=== PATIENT | female | born 1950 | race Caucasian/White ===

== ENCOUNTER → 2016-12-16 | Outpatient (CLI) | payer MEDICARE ==
[~2016-12-16] MED LIST: AMIT100T35 PO; AMLO1CAP18 PO; ASPI-715 PO; BENA20TA45 PO; CITA20TA17 PO; FURO-33 PO; HYDR-696 PO; OMEP-29 PO
== END ==
LOC: WC.BC 08:31
DX: Z12.31 Encounter for screening mammogram for malignant neoplasm of breast (principal); N64.59 Other signs and symptoms in breast; Z80.3 Family history of malignant neoplasm of breast
CPT/HCPCS: 77063; G0202

== ENCOUNTER 2017-10-28 06:14 | Inpatient (IN) ==
--- NOTE | 2017-10-25 17:09 | History and Physical ---
CHIEF COMPLAINT Right knee pain. MIKY Bui is a 67-year-old lady who has had right knee pain for several years. The severity of her pain is becoming severe. It is aching and sharp in quality and is constant. It does not radiate. It is aggravated with weightbearing, walking and prolonged sitting. She has tried physical therapy, corticosteroid injections, rest and other activities without improvement. She is having more weakness with walking, pain at night awakening her from sleep and a locking sensation in the knee. X-rays show advanced arthritis with loss of the joint space. Due to the severity of her symptoms she is being admitted for an elective total knee replacement. ALLERGIES No known drug allergies. MEDICATIONS, ILLNESSES, PAST SURGICAL HISTORY, FAMILY HISTORY, SOCIAL HISTORY Reviewed and updated in the EMR. A copy of reports from Dr. Lambert and Dr. Ordoñez are included on the chart for review. REVIEW OF SYSTEMS There was no fever, chills, skin infections, rashes, numbness of extremity, or seizures. PHYSICAL EXAMINATION GENERAL: Mrs. Wagner is a 67-year-old female. She is cooperative, in no acute distress, well-developed and well-nourished. RIGHT KNEE: The knee shows tenderness to the medial joint line. She has a varus deformity that is fixed. She has a 1+ effusion to the knee. Skin is in good repair. She is intact neurovascularly to the lower extremity. IMPRESSION Primary degenerative arthritis of the right knee. PLAN Due to the severity of symptoms, x-ray findings, and failure of nonsurgical treatment, Dr. Ordoñez has recommended a right total knee arthroplasty. Dr. Ordoñez reviewed the risks, benefits, alternative treatments and possible complications of surgery. Questions have been answered to the patient's satisfaction. Will plan to proceed with a right total knee on 10/28/2017. MADAY
[~2017-10-28 06:14] MED LIST changes: +ACETAMINOPHEN 500 MG TABLET PO ONE; -AMIT100T35 PO; -AMLO1CAP18 PO; -ASPI-715 PO; -BENA20TA45 PO; -CITA20TA17 PO; +FAMOTIDINE PB 20 MG/50 ML BAG IV ONE; -FURO-33 PO; -HYDR-696 PO; +LIDOCAINE 1% (10mg/ml) 2mL INJ PF SDV ID ONE; +METOCLOPRAMIDE 10mg/2ml INJECTION IVP ONE; -OMEP-29 PO; +ONDANSETRON 4 MG/2 ML INJECTION IVP ONE; +TRANEXAMIC ACID 1,000 MG in NS 100 ML IV ONE
[2017-10-28 06:33] VITALS: BMI 42.7
[2017-10-28] MEDS ORDERED: TRANEXAMIC ACID 1,000 MG in NS 100 ML IV ONE (07:00)
[2017-10-28] MEDS: NOZIN NASAL SWAB NAS SCH ×5 (07:39→21:34)
[2017-10-28] MEDS ORDERED: EPINEPHrine PF 0.25 MG, BUPIVACAINE 0.25% PF 30 ML, MORPHINE SULFATE 15 MG, KETOROLAC I... OPSITE ONE (08:00)
[2017-10-28] MEDS ORDERED: CEFAZOLIN 1 G INJECTION IVP ONE (09:00)
[2017-10-28] MEDS ORDERED: VANCOMYCIN 1,000 MG INJECTION ONE ×2 (09:01→09:02)
--- NOTE | 2017-10-28 09:24 | Anesthesia Preoperative Report ---
Anesthesia Preoperative Record - Date and Time Date: 10/28/17 Preoperative Diagnosis: Rt TKA M17.11 NPO Since Date: 10/27/17 NPO Since Time: 23:00 Allergies/Adverse Reactions: Allergies Allergy/AdvReac Type Severity Reaction Status Date / Time No Known Allergies Allergy Verified 10/28/17 07:21 - Vital Signs Vital Signs: Temperature 98.4 F 10/28/17 06:32 Pulse Rate 96 10/28/17 06:32 Respiratory Rate 14 10/28/17 06:32 Blood Pressure 130/92 H 10/28/17 06:32 Pulse Oximetry 96 10/28/17 06:32 Height and Weight: Height 5 ft 1 in Weight 102.5 kg Body Mass Index 42.7 - Medications Inpatient Medications: Current Medications Lactated Ringer's (Lactated Ringers) 1,000 mls @ 50 mls/hr IV .Q20H [facility] Last Admin: 10/28/17 07:25 Dose: 50 mls/hr Epinephrine HCl 0.25 mg/Bupivacaine HCl 30 ml/Morphine Sulfate 15 mg/Ketorolac Tromethamine 60 mg/Sodium Chloride 65.25 mls @ 1 mls/hr OPSITE INTRAOP ONE PRN Reason: Protocol Stop: 10/31/17 01:14 Isopropyl Alcohol (Nozin Nasal Swab) 1 each JAZLYN Q1M [facility] Stop: 10/28/17 16:48 Last Admin: 10/28/17 07:45 Dose: 1 each Sodium Chloride (Iv Flush) 10 - 80 ml IV PRN PRN PRN Reason: [place] Home Medications: Home Medications Medication Instructions Recorded Confirmed Type Amitriptyline HCl 100 mg PO HS #0 01/16/11 10/28/17 History Aspirin [Aspirin EC] 81 mg PO DAILY #0 01/16/11 10/28/17 History Benazepril HCl 20 mg PO DAILY #0 06/08/12 10/28/17 History Omeprazole 20 mg PO DAILY #0 06/09/12 10/28/17 History [place] 7.5 mg-acetaminophen 325 mg 1 tab PO Q6H PRN 05/19/17 10/28/17 History tablet Levothyroxine Tab [Synthroid] 75 mcg PO ACB 06/17/17 10/28/17 History Torsemide [Demadex] 20 mg PO DAILY 06/17/17 10/28/17 History Is Patient on Beta Charisse?: No - Medical History Respiratory: Reports: Upper Respiratory Infection (recent) DENIES: Asthma, Bronchitis, Chronic Obstructive Pulmonary Disease (COPD), Dyspnea, Orthopnea, Pulmonary Embolism, Pneumonia, Pulmonary Edema, Sleep Apnea , Tuberculosis, Other Cardiovascular: Reports: Hypertension DENIES: Angina, Arrhythmia Gastrointestional: Reports: Gastroesophageal Reflux Disease (well controlled), Morbid Obesity DENIES: Obstructive Bowel, Hepatitis, Cirrhosis, Gastrointestinal Bleeding, Hiatal Hernia, Ulcer, Other Neuro/Musculoskeletal: Reports: HX.MS.OSAR (knees, hands), Depression (hx-not on med now) Denies: Back Problems, Cerebrovascular Accident, Headaches, Loss of Consciousness, Muscle Weakness, Neuromuscular Disorder, Paralysis, Paresthesia, Syncope, Seizures, Other Renal/Endocrine: Reports: Thyroid Disease, Other (hyperglycemia per h&p) DENIES: Diabetes Mellitus Type 1, Diabetes Mellitus Type 2, Renal Failure, Dialysis, Weight Loss, Weight Gain Other History: DENIES: Anesthesia Reactions, Now, Blood Transfusions, Chemotherapy , Cancer, Hemophilia, Malignant Hyperthermia, Sickle Cell Disease, Other - Surgical History HEENT Surgeries: Reports: Tonsillectomy (AGE 6) Cardiac Surgeries/Treatments: Reports: Cardiac Catheterization (normal findings) GI Surgery/Treatments: Reports: Cholecystectomy (1995), Colonoscopy (2011), Other (drainage of pilonidal cyst) Surgery/Treatment: DENIES: Dialysis Musculoskeletal Surgery/Tx: Reports: Knee Arthroscopy (X2 ON LEFT), Shoulder Arthroscopy (left) Reproductive Surgery/Treatment: Reports: Tubal Ligation Anesthesia Reactions: None Hx Family Anesthesia Reaction: No History of Motion Sickness: No - Social History Smoking Status: Never smoker Hx Chewing Tobacco Use: No Second Hand Exposure: No Substance Use Type: does not use Alcohol Intake: former Alcohol Intake Frequency: does not drink - Pertinent Findings Laboratory: CBC and BMP 10/28/17 06:56 BMP 10/28/17 06:56 Sodium 140 Potassium 4.3 Chloride 103 Carbon Dioxide 27 BUN 21.0 H Creatinine 0.9 Glucose 98 Calcium 9.6 EKG: Sinus Rhythm - Physical Exam Respiratory Exam: Present: lungs clear, bilateral breath sounds equal Cardiovascular Exam: Present: regular rate and rhythm - Airway Assessment Mallampati Score: II TMD: 3 Fingerbreadths Neck Extension: good Overall Assessment: no airway concerns - ASA ASA Score: 2 - Plan Anesthesia: General TIVA Regional/Trunk Block: Spinal - Discussion Discussion: Discussed risks/options/alternatives of anesthesia and questions answered. Patient consents. Nursing pain assessment noted. Present for Discussion: spouse Attestation Statement: Prior to the delivery of any anesthetic medication, I examined the patient, developed the plan, obtained the patient's consent and discussed the risk and benefits of the procedure with the patient/guardian. - Additional Information Seen by Anesthesia: Yes
[2017-10-28] MEDS ORDERED: MIDAZOLAM 2mg/2ml INJECTION ONE (09:43)
[2017-10-28] MEDS ORDERED: PROPOFOL 500 MG/50 ML VIAL ONE (10:02)
[2017-10-28] MEDS ORDERED: VANCOMYCIN 1,000 MG INJECTION IAR ONE (10:40)
[2017-10-28] MEDS ORDERED: SALINE FLUSH 10ml SYRINGE ONE (10:44)
[2017-10-28] MEDS ORDERED: PHENYLEPHRINE INJ 10 MG/ML VIAL IV ONE (10:44)
--- NOTE | 2017-10-28 11:13 | Operative Note ---
- Procedure Preoperative Diagnosis: Right knee primary degenerative joint disease Postoperative Diagnosis: Same as preoperative diagnosis. Surgeon: Teresa Ordoñez MD Academic Program Specialist: Panda Goldberg Complications: None. Anesthesia: Spinal. Estimated Blood Loss: See Anesthesia Record. Fluids: Please see Anesthesia Record. Description of Procedure: Mrs. Wagner and her right knee were identified and marked in the preoperative holding area. She was brought back to the operating suite. Spinal anesthetic was administered and she was placed supine on the operating table. The right lower extremity was prepped and draped in my normal sterile fashion. Timeout was performed. The [email or web address] robotic arm was used during the surgery. She had a fixed varus deformity with no flexion contracture. A standard anterior midline incision followed by medial parapatellar arthrotomy was performed. Anterior fat pad and meniscus were removed. The patella was everted and a patellar osteotomy was performed leaving 13 mm of bone. Tibial and femoral arrays and checkpoints were placed both within the original incision. The bone was then registered with the [email or web address] robot. Osteophytes were removed and gaps were captured both 90 and 0 with correction. We obtained 17 mm Extension and 18 mm gaps in flexion with the robotic software. The [email or web address] robotic arm was then used to assist with the bone cuts. Posterior osteophytes and remaining meniscus were removed. Trial components were placed. We used a 3 femur and a 2 tibia with a 9 mm spacer and a 29 patella. She tracked well and was well balanced throughout range of motion. The tibia was stamped at the proper rotation. Trial components fit well and bone quality was adequate so we proceeded with press-fit components. Components were press-fit into place. A final spacer was also placed. The knee was ranged one more time to ensure good stability, balance and patellar tracking. 1 g of vancomycin powder was then placed into the knee joint. The capsulotomy was then closed with #1 Vicryl. I then left my teachers assistant to close the subcutaneous tissue with 2-0 Vicryl. Running 4-0 Monocryl will be used in the subcuticular layer. Dermabond will be used on the skin followed by sterile dressing. After drapes are removed patient will be taken to recovery room under the care of anesthesia.
[2017-10-28] MEDS ORDERED: ROPIVACAINE 0.5% (5mg/ml) 30ml INJ ONE (11:23)
--- NOTE | 2017-10-28 11:59 | Anesthesia Postoperative Note ---
- Date and Time Date: 10/28/17 Time: 11:59 - Status Patient Participated in Evaluation: Patient Participated in Person Vital Signs: Temperature 98.4 F 10/28/17 06:32 Pulse Rate 96 10/28/17 06:32 Respiratory Rate 14 10/28/17 06:32 Blood Pressure 130/92 H 10/28/17 06:32 Pulse Oximetry 96 10/28/17 06:32 Respiratory Function: Airway Patent Cardiovascular Function: Regular Pulse EKG: Sinus Rhythm Mental Status: Alert and Oriented Pain Intensity: 0 Hydration: IV Infusing Complications During Recover: None Apparent - Follow-Up Instructions Instructions: Per Surgeon
--- NOTE | 2017-10-28 12:02 | Anesthesia Procedure Note ---
Peripheral Nerve Blockade - Procedure Physician: Aditya Ordoñez MD Date: 10/28/17 Surgical Procedure: right tka Discussion: Discussed risks/options/alternatives of anesthesia and questions answered. Patient consents. Nursing pain assessment noted. Block Start: 11:50 Block Stop: 11:54 Blocked Employed: Adductor Canal Indication: Post-Operative Pain Approach: Right Side Confirmed Position: Supine Patient: Consent, Risks/Benefits Discussed, Informed, Post Block Act. Discussed IV Sedation: No (spinal) Initial Vital Signs: Temperature 98.4 F 10/28/17 06:32 Temperature Source Oral 10/28/17 06:32 Pulse Rate 96 10/28/17 06:32 Respiratory Rate 14 10/28/17 06:32 Blood Pressure 130/92 H 10/28/17 06:32 Blood Pressure Mean 104 10/28/17 06:32 Blood Pressure Position Sitting 10/28/17 06:32 Pulse Oximetry 96 10/28/17 06:32 Oxygen Delivery Method 10/28/17 06:32 Post Vital Signs: Temperature 98.4 F 10/28/17 06:32 Pulse Rate 96 10/28/17 06:32 Respiratory Rate 14 10/28/17 06:32 Blood Pressure 130/92 H 10/28/17 06:32 Pulse Oximetry 96 10/28/17 06:32 Initial Pain Pain Score: 0 Post Block Pain Score: 0 Prep: Chlorhexadine/ETOH Ultrasound Used?: Yes - Injectate Ropivacaine (%): 0.5 Ropivacaine (mL): 30 Was Epi 1:200,000 Used?: No Injection: Injection made incrementally with constant monitoring and negative aspiration every 5 ml
[2017-10-28] MEDS ORDERED: DiphenhydrAMINE 25 MG CAPSULE PO PRN (12:27)
[2017-10-28] MEDS ORDERED: LORazepam 1 MG TABLET PO PRN (12:27)
[2017-10-28] MEDS ORDERED: ONDANSETRON 4 MG/2 ML INJECTION IVP PRN (12:27)
[2017-10-28] MEDS ORDERED: NOZIN NASAL SWAB NAS ONE (12:27)
[2017-10-28] MEDS ORDERED: NAPROXEN 220 MG TABLET PO PRN (12:27)
[2017-10-28] MEDS ORDERED: DiphenhydrAMINE 50 MG/ML INJECTION IVP PRN (12:27)
[2017-10-28] MEDS: NS 1,000 ML IV SCH (12:37)
--- NOTE | 2017-10-28 12:55 | XRay Report ---
EXAM: XR knee RT 2V COMPARISON: 07/13/2017 CT. 05/18/2017. 04/20/2017. HISTORY:Status post right knee replacement. postoperative image . FINDINGS: Right total hip prosthesis is in place with the femoral, tibial, and patellar components intact and appearing to be in good position and alignment. Intracapsular air is noted. Subcutaneous air is also seen. Overlying bracing material is noted somewhat limiting the exam. IMPRESSION: Right total knee prosthesis in place which appears to be in good position and alignment. LOCATION OF DICTATION: [facility] [place] .
[2017-10-28] MEDS: ACETAMINOPHEN 325 MG TABLET PO SCH ×3 (13:27→21:33)
[2017-10-28] MEDS ORDERED: LR 1,000 ML IV SCH (16:00)
[2017-10-28] MEDS ORDERED: SALINE FLUSH 10ml SYRINGE IV PRN (16:31)
[2017-10-28] MEDS: CEFAZOLIN 2 G in NS 100 ML IV SCH (16:59)
[2017-10-28] MEDS: Oxycodone *IR* 5 MG TABLET PO PRN (18:11)
[2017-10-28] MEDS ORDERED: SENNOSIDES 8.6 MG TABLET PO SCH (21:00)
[2017-10-28] MEDS ORDERED: AMITRIPTYLINE 100 MG TABLET PO SCH (21:00)
[2017-10-28] MEDS: ASPIRIN *EC* 81 MG TABLET PO SCH (21:33)
[2017-10-28] MEDS: DOCUSATE SODIUM 100 MG CAPSULE PO SCH (21:34)
[2017-10-29] MEDS: CEFAZOLIN 2 G in NS 100 ML IV SCH (00:01)
[2017-10-29] MEDS: NS 1,000 ML IV SCH (02:46)
[2017-10-29 03:02] VITALS: PULSE 94
[2017-10-29] MEDS: Oxycodone *IR* 5 MG TABLET PO PRN ×3 (03:07→13:21)
[2017-10-29] MEDS: NOZIN NASAL SWAB NAS SCH ×2 (06:08→13:21)
[2017-10-29] MEDS ORDERED: LEVOTHYROXINE 75 MCG TABLET PO SCH (06:30)
[2017-10-29 07:37] VITALS: O2SAT 95
--- NOTE | 2017-10-29 08:33 | Orthopedic Progress Note ---
Date: Date: 10/29/17 Time: 830 Subjective/Severity of Illness: Doing well. She is having more pain this AM and needs her meds. She wants to go home today. She has been up with good tolerance. No other concerns at this time. Hgb 12.0 and BMP looks good. Orthopedic Objective PO Vital signs: Temperature 97.5 F 10/29/17 07:32 Pulse Rate 94 10/29/17 07:32 Respiratory Rate 18 10/29/17 07:32 Blood Pressure 133/79 10/29/17 07:32 Pulse Oximetry 95 10/29/17 07:32 Height and Weight: Height 5 ft 1 in Weight 228 lb 13.437 oz Body Mass Index 42.7 - Constitutional General Appearance: Present: alert, cooperative, no acute distress - Respiratory Exam Present: non-labored - Cardiovascular Exam Present: pedal pulses intact - Surgical Site Incision: Mepilex dressing intact, no drainage - Neurological Exam Present: no deficits - Psychiatric Exam Present: alert, normal affect - Labs Result Diagrams: 10/29/17 03:55 10/29/17 03:55 H & H 10/29/17 Range/Units 03:55 Hgb 12.0 (12-16) GM/DL Hct 37.9 (36-46) % Orthopedic Assessment and Plan (1) Primary osteoarthritis of right knee Status: Acute Assessment and Plan: Current anti-coagulation protocol for VTE prophylaxis. SCD's. PT/OT services to improve independent function. Discharge Planning per Case Management. - Anticoagulation Therapy Anticoagulation: ASA 81 mg PO BID x6 weeks Hospital Course Summary Disclaimer: The visit summary below is not to be considered part of the above Progress Note.
[2017-10-29] MEDS ORDERED: POLYETHYL GLYCOL 3350 17gm PACKET PO SCH (09:00)
[2017-10-29] MEDS ORDERED: BENAZEPRIL 20 MG TABLET PO SCH (09:00)
[2017-10-29] MEDS ORDERED: OMEPRAZOLE 20 MG CAPSULE PO SCH (09:00)
[2017-10-29] MEDS ORDERED: TORSEMIDE 20 MG TABLET PO SCH (09:00)
[2017-10-29] MEDS ORDERED: SENNOSIDES 8.6 MG TABLET PO PRN (09:11)
[2017-10-29] MEDS: ACETAMINOPHEN 325 MG TABLET PO SCH ×2 (09:30→13:20)
[2017-10-29] MEDS: DOCUSATE SODIUM 100 MG CAPSULE PO SCH (09:31)
[2017-10-29] MEDS: ASPIRIN *EC* 81 MG TABLET PO SCH (09:31)
[2017-10-29 13:39] VITALS: BP 131/96; RESP 12; TEMP 98.5
--- NOTE | 2017-10-29 14:38 | Discharge Summary ---
Orthopedic Discharge Info Date of admission: 10/28/17 06:14 Anticipated date of discharge: 10/29/17 Primary care physician: Rakesh Lambert MD Attending Physician: Aditya Ordoñez MD Consults: 10/28/17 06:50 Consult to Anesthesiology [CONS] Routine Reason For Exam: Preoperative Assessment 10/28/17 12:27 Case Management Consult [CONS] Routine Reason For Exam: Discharge Planning DME-Walker [CONS] Routine Height: 5 ft 1 in Weight: 225 lb 15.581 oz Total Joint Outpatient Therapy [CONS] Routine Comment: Remove dressing in 2 weeks - Discharge Diagnosis (1) Primary osteoarthritis of right knee Status: Acute - Laboratory Result Diagrams: 10/29/17 03:55 10/29/17 03:55 Laboratory: H & H 10/29/17 Range/Units 03:55 Hgb 12.0 (12-16) GM/DL Hct 37.9 (36-46) % Orthopedic Discharge HPI - HPI Comments This patient was admitted for elective surgical tx of end stage degenerative joint disease that failed to respond to conservative treatment. Further details of this is found in the admission H&P. Orthopedic Hospital Course Hospital course: 10/29/17 14:34 After appropriate preoperative clearance and signing of operative consent, the patient was given IV antibiotics, according to orthopedic protocol. The patient was taken to the operating room and underwent elective total knee arthroplasty. Following surgery, antibiotics were discontinued less than 24 hours according to joint protocol. Appropriate anticoagulants were initiated and SCDs added for DVT prevention. The dressing was clean, dry, and intact. Pain control was obtained via multimodal approach. Bowel motivation addressed with scheduled and PRN medications. Early mobilization was initiated through PT services. Discharge arrangements made by a collaborative effort between the patient and Case Management. Follow-up is scheduled in 2-3 weeks. Discharge instructions given by orthopedic providers and nursing staff at discharge. Discharge condition was good. Care extended to > 2 midnight stays?: No Discharge Plan - Med Rec/Dispo Referrals/Follow Up: Aditya Ordoñez MD [Physician] - 11/22/17 1:15 pm [place] Instructions: [facility] Postop Instructions Additional Instructions: DULCE HELM ONEAL ON 11/02/2017 AT 11:00AM FOR PHYSICAL THERAPY EVAL. PHONE [phone] Prescriptions: New Acetaminophen [Tylenol] 650 mg PO QID tablet Aspirin *EC* [Ecotrin] 81 mg PO BID tablet Docusate Sodium [Colace] 100 mg PO BID capsule Milk of Magnesia [Mom] 30 ml PO DAILY udc Naproxen [Aleve] 440 mg PO BID PRN tablet PRN Reason: Pain PEG 3350 17gm PACKET [Miralax] 17 gm PO DAILY packet Oxycodone *IR* [Roxicodone *Ir*] 5 - 15 mg PO Q3H PRN #60 tab PRN Reason: Breakthrough Pain Continue Amitriptyline HCl 100 mg PO HS #0 Levothyroxine Tab [Synthroid] 75 mcg PO ACB Benazepril HCl 20 mg PO DAILY #0 Omeprazole 20 mg PO DAILY #0 Torsemide [Demadex] 20 mg PO DAILY ergocalciferol (vitamin D2) 50,000 unit capsule 50,000 unit PO DAILY #1 cap Discontinued Aspirin [Aspirin EC] 81 mg PO DAILY #0 [place] 7.5 mg-acetaminophen 325 mg tablet 1 tab PO Q6H PRN PRN Reason: Pain - Disposition 01 Discharged Home, Self-Care - Dismissal Complete Discharge Instructions are:: Complete
[2017-10-30] MEDS ORDERED: BISACODYL 10 MG SUPPOSITORY RECTALLY SCH (20:00)
== END 2017-10-29 15:05 | disposition home or self-care (01) | DRG 470 ==
LOC: NMC.PERIOP 06:14 → EDSTATUS 10:50 → SRG 12:27
PROVIDERS: ADMIT Orthopaedic Surgery; ATTEND Orthopaedic Surgery

== ENCOUNTER 2017-12-30 06:29 | Inpatient (IN) ==
[~2017-12-30 06:29] MED LIST changes: +DEXAMETHASONE 4 MG/ML INJECTION IVP ONE
[2017-12-30 06:46] VITALS: BMI 41.9
[2017-12-30] MEDS ORDERED: TRANEXAMIC ACID 1,000 MG in NS 100 ML IV ONE (07:00)
[2017-12-30] MEDS: LR 1,000 ML IV SCH ×2 (07:15→09:59)
[2017-12-30] MEDS: NOZIN NASAL SWAB NAS SCH ×5 (07:24→21:20)
[2017-12-30] MEDS ORDERED: SEVOFLURANE 250ml LIQUID IH ONE (07:41)
[2017-12-30] MEDS ORDERED: PROPOFOL 500 MG/50 ML VIAL ONE (07:43)
--- NOTE | 2017-12-30 07:48 | Anesthesia Preoperative Report ---
Anesthesia Preoperative Record - Date and Time Date: 12/30/17 Preoperative Diagnosis: total knee arthroplasty M17.12 Proposed Procedure: robot assist TKA NPO Since Date: 12/30/17 NPO Since Time: 06:00 Allergies/Adverse Reactions: Allergies Allergy/AdvReac Type Severity Reaction Status Date / Time No Known Allergies Allergy Verified 12/30/17 07:13 - Vital Signs Vital Signs: Temperature 98.1 F 12/30/17 06:45 Pulse Rate 79 12/30/17 06:45 Respiratory Rate 15 12/30/17 06:45 Blood Pressure 153/86 H 12/30/17 06:45 Pulse Oximetry 94 12/30/17 06:45 Height and Weight: Height 1.52 m Weight 97.4 kg Body Mass Index 41.9 - Medications Inpatient Medications: Current Medications Cefazolin Sodium (Kefzol) 2 g IVP PREOP ONE Stop: 12/30/17 08:31 Epinephrine HCl 0.25 mg/Bupivacaine HCl 30 ml/Ketorolac Tromethamine 60 mg/ Sodium Chloride 62.25 mls @ 1 mls/hr OPSITE INTRAOP ONE PRN Reason: Protocol Stop: 01/01/18 22:14 Lactated Ringer's (Lactated Ringers) 1,000 mls @ 50 mls/hr IV .Q20H [facility] Last Admin: 12/30/17 07:15 Dose: 50 mls/hr Isopropyl Alcohol (Nozin Nasal Swab) 1 each JAZLYN Q1M [facility] Stop: 12/30/17 12:03 Last Admin: 12/30/17 07:29 Dose: 1 each Sodium Chloride (Iv Flush) 10 - 80 ml IV PRN PRN PRN Reason: [place] Home Medications: Home Medications Medication Instructions Recorded Confirmed Type Levothyroxine Tab [Synthroid] 75 mcg PO ACB 06/17/17 12/30/17 History Torsemide [Demadex] 20 mg PO DAILY 06/17/17 12/30/17 History Aspirin *EC* [Ecotrin] 81 mg PO BID tab 10/29/17 12/30/17 Rx Docusate Sodium [Colace] 100 mg PO BID cap 10/29/17 12/30/17 Rx Naproxen [Aleve (Naproxen) 220 mg] 440 mg PO BID PRN tab 10/29/17 12/30/17 Rx Amitriptyline [Elavil] 1 tab PO HS 12/21/17 12/30/17 History Benazepril [Lotensin] 20 mg PO DAILY 12/21/17 12/30/17 History Citalopram [Celexa] 1 tab PO DAILY 12/21/17 12/30/17 History Is Patient on Beta Charisse?: No - Medical History Respiratory: Reports: Upper Respiratory Infection (recent) DENIES: Asthma, Bronchitis, Chronic Obstructive Pulmonary Disease (COPD), Dyspnea, Orthopnea, Pulmonary Embolism, Pneumonia, Pulmonary Edema, Sleep Apnea , Tuberculosis, Other Cardiovascular: Reports: Hypertension DENIES: Angina, Arrhythmia Gastrointestional: Reports: Gastroesophageal Reflux Disease (well controlled- no meds), Morbid Obesity DENIES: Obstructive Bowel, Hepatitis, Cirrhosis, Gastrointestinal Bleeding, Hiatal Hernia, Ulcer, Other Neuro/Musculoskeletal: Reports: HX.MS.OSAR (knees, hands), Depression Denies: Back Problems, Cerebrovascular Accident, Headaches, Loss of Consciousness, Muscle Weakness, Neuromuscular Disorder, Paralysis, Paresthesia, Syncope, Seizures, Other Renal/Endocrine: Reports: Thyroid Disease (hypothyroidism), Other ( hyperglycemia per h&p) DENIES: Diabetes Mellitus Type 1, Diabetes Mellitus Type 2, Renal Failure, Dialysis, Weight Loss, Weight Gain Other History: DENIES: Anesthesia Reactions, Now, Blood Transfusions, Chemotherapy , Cancer, Hemophilia, Malignant Hyperthermia, Sickle Cell Disease, Other - Surgical History HEENT Surgeries: Reports: Tonsillectomy (AGE 6) Cardiac Surgeries/Treatments: Reports: Cardiac Catheterization (normal findings age 47) GI Surgery/Treatments: Reports: Cholecystectomy (1995), Colonoscopy (2011), Other (drainage of pilonidal cyst) Surgery/Treatment: DENIES: Dialysis Musculoskeletal Surgery/Tx: Reports: Carpal Tunnel Release (bilateral), Knee Arthroscopy (left), Shoulder Arthroscopy (left total shoulder), Total Knee Replacement (Rt TKA), Other (patellar tendon repair 2009) Reproductive Surgery/Treatment: Reports: Tubal Ligation Hx Family Anesthesia Reaction: No History of Motion Sickness: No - Social History Smoking Status: Never smoker Hx Chewing Tobacco Use: No Second Hand Exposure: No Substance Use Type: does not use Alcohol Intake: former Alcohol Intake Frequency: does not drink - Pertinent Findings Laboratory: CBC and BMP 12/30/17 06:50 BMP 12/30/17 06:50 Sodium 145 H Potassium 4.0 Chloride 104 Carbon Dioxide 28 BUN 22.0 H Creatinine 0.8 Glucose 103 Calcium 10.2 EKG: Sinus Rhythm - Physical Exam Respiratory Exam: Present: lungs clear Cardiovascular Exam: Present: regular rate and rhythm, no murmur - Airway Assessment Mallampati Score: II TMD: 3 Fingerbreadths Teeth: chipped teeth/crowns Overall Assessment: no airway concerns - ASA ASA Score: 3 - Plan Regional/Trunk Block: Spinal - Discussion Discussion: Discussed risks/options/alternatives of anesthesia and questions answered. Patient consents. Nursing pain assessment noted. Present for Discussion: family member Attestation Statement: Prior to the delivery of any anesthetic medication, I examined the patient, developed the plan, obtained the patient's consent and discussed the risk and benefits of the procedure with the patient/guardian. - Additional Information Seen by Anesthesia: Yes
[2017-12-30] MEDS ORDERED: EPINEPHrine PF 0.25 MG, BUPIVACAINE 0.25% PF 30 ML, KETOROLAC INJ 60 MG in NS 30 ML OPSITE ONE (08:00)
[2017-12-30] MEDS ORDERED: VANCOMYCIN 1,000 MG INJECTION IAR ONE (08:03)
[2017-12-30] MEDS ORDERED: VANCOMYCIN 1,000 MG INJECTION ONE (08:08)
[2017-12-30] MEDS ORDERED: CEFAZOLIN 1 G INJECTION IVP ONE (08:30)
[2017-12-30] MEDS ORDERED: LIDOCAINE 2% (100mg/5mL) 5ml PF SDV ONE ×2 (08:40→09:14)
[2017-12-30] MEDS ORDERED: MIDAZOLAM 2mg/2ml INJECTION ONE (08:55)
[2017-12-30] MEDS ORDERED: SALINE FLUSH 10ml SYRINGE ONE (09:03)
[2017-12-30] MEDS ORDERED: PHENYLEPHRINE INJ 10 MG/ML VIAL IV ONE (09:28)
[2017-12-30] MEDS ORDERED: GLYCOPYRROLATE 0.4 MG/2 ML INJECTION ONE (09:31)
[2017-12-30] MEDS ORDERED: ROPIVACAINE 0.5% (5mg/ml) 30ml INJ ONE (10:21)
--- NOTE | 2017-12-30 10:31 | Operative Note ---
- Procedure Preoperative Diagnosis: Left knee primary degenerative joint disease Postoperative Diagnosis: Same as preoperative diagnosis. Surgeon: Teresa Ordoñez MD Engine Wiper: Aliya Cruz Complications: None. Anesthesia: Spinal. Estimated Blood Loss: See Anesthesia Record. Fluids: Please see Anesthesia Record. Description of Procedure: Mrs. Wagner and her left knee were identified and marked in the preoperative holding area. She was brought back to the operating suite. Spinal anesthetic was administered and she was placed supine on the operating table. The left lower extremity was prepped and draped in my normal sterile fashion. Timeout was performed. The [employer] robotic arm was used during the surgery. She had a fixed varus deformity with mild flexion contracture. A standard anterior midline incision followed by medial parapatellar arthrotomy was performed. Anterior fat pad and meniscus were removed. The patella was everted and a patella osteotomy was performed leaving 13 mm of bone. Tibial and femoral arrays and checkpoints were placed both within the original incision. She had large medial osteophytes. The bone was then registered with the [employer] robot. Osteophytes were removed and gaps were captured both 90 and 0 degrees with correction. The [employer] robotic suffers utilized to obtain 18 mm gaps throughout. The [employer] robotic arm was then used to assist with the bone cuts. Posterior osteophytes and remaining meniscus were removed. Trial components were placed. Because of removal of large medial osteophytes she opened up slightly medially I did a partial release of the IT band and a partial release of the PCL which allowed me to place an 11 mm spacer and with this was well balanced. We used a 3 femur and a 2 tibia with a 11 mm spacer and a 29 patella. She tracked well and was well balanced throughout range of motion. The tibia was stamped at the proper rotation. Trial components fit well and bone quality was adequate so we proceeded with press-fit components. Components were press-fit into place. A final spacer was also placed. The knee was ranged one more time to ensure good stability, balance and patellar tracking. 1 g of vancomycin powder was then placed into the knee joint. The capsulotomy was then closed with #1 Vicryl. I then left my photo studio assistant to close the subcutaneous tissue with 2-0 Vicryl. Running 4-0 Monocryl will be used in the subcuticular layer. Dermabond will be used on the skin followed by sterile dressing. After drapes are removed patient will be taken to recovery room under the care of anesthesia.
--- NOTE | 2017-12-30 11:03 | Anesthesia Procedure Note ---
Peripheral Nerve Blockade - Procedure Physician: Aditya Ordoñez MD Date: 12/30/17 Surgical Procedure: Left TKA Discussion: Discussed risks/options/alternatives of anesthesia and questions answered. Patient consents. Nursing pain assessment noted. Block Start: 10:55 Block Stop: 11:00 Blocked Employed: [employer] Indication: Post-Operative Pain Approach: Left Side Confirmed Position: Supine Patient: Consent, Risks/Benefits Discussed, Informed, Post Block Act. Discussed IV Sedation: No (Spinal Intact) Initial Vital Signs: Temperature 98.1 F 12/30/17 06:45 Temperature Source Oral 12/30/17 06:45 Pulse Rate 79 12/30/17 06:45 Respiratory Rate 15 12/30/17 06:45 Blood Pressure 153/86 H 12/30/17 06:45 Blood Pressure Mean 108 12/30/17 06:45 Blood Pressure Position Sitting 12/30/17 06:45 Pulse Oximetry 94 12/30/17 06:45 Oxygen Delivery Method 12/30/17 06:45 Post Vital Signs: Temperature 96.9 F 12/30/17 10:39 Pulse Rate 87 12/30/17 11:00 Respiratory Rate 20 12/30/17 11:00 Blood Pressure 112/68 12/30/17 11:00 Pulse Oximetry 97 12/30/17 11:00 Initial Pain Pain Score: 0 Post Block Pain Score: 0 Prep: Chlorhexadine/ETOH Ultrasound Used?: Yes - Injectate Ropivacaine (%): 0.5 Ropivacaine (mL): 15 Was Epi 1:200,000 Used?: No Injection: Injection made incrementally with constant monitoring and aspiration every 5 ml
[2017-12-30] MEDS ORDERED: ONDANSETRON 4 MG/2 ML INJECTION IVP PRN (11:31)
[2017-12-30] MEDS ORDERED: NOZIN NASAL SWAB NAS ONE (11:31)
[2017-12-30] MEDS ORDERED: DiphenhydrAMINE 25 MG CAPSULE PO PRN (11:31)
[2017-12-30] MEDS ORDERED: NAPROXEN 220 MG TABLET PO SCH (11:31)
[2017-12-30] MEDS ORDERED: LORazepam 1 MG TABLET PO PRN (11:31)
[2017-12-30] MEDS ORDERED: DiphenhydrAMINE 50 MG/ML INJECTION IVP PRN (11:31)
--- NOTE | 2017-12-30 11:33 | XRay Report ---
Indication: postoperative image PROCEDURE: XR knee LT 2V: Encounter: Initial Comparison: December 13, 2017 Findings: Postoperative changes of left total knee replacement are seen. There is expected postoperative subcutaneous gas. No evidence of hardware failure or acute fracture. No retained radiopaque surgical instruments or sponges. Overlying material causing artifact. Impression: New left total knee prosthesis without evidence of immediate complication. .
[2017-12-30] MEDS: NS 1,000 ML IV SCH (11:36)
[2017-12-30] MEDS ORDERED: SALINE FLUSH 10ml SYRINGE IV PRN (11:59)
--- NOTE | 2017-12-30 14:16 | Cardiology Consult Note ---
<Mai Lo - Last Filed: 12/30/17 15:15> History of Present Illness Consult date: 12/30/17 Consult reason: chest pain Chief complaint: substernal chest pain History of present illness: Pt is s/p a left total knee replacement this am. Patient reported substernal chest pain/pressure radiating to her back after coming to her room from recovery. Hemodynamically stable. Pt has a personal history of HTN; denies HLD or CAD. Father w/CAD and SC. She reports to me an onset of this pain 3 weeks ago, it has been constant, nothing makes it better or worse. It intermittently radiates to her back and is unbearable. She has a personal hx of GERD, used to take PPI's but confirms it has been years since she quit them. She has a >10 year history of NSAID use, progressing to daily use in the last couple years. She underwent a RT total knee 10/26/17, took Narcotic pain medication for two weeks then back to her ibuprofen use 4-8 tabs daily. She had a stress test and echo approximately [address] Zhong, she reports she was told she had an enlarged heart was all. She has a hx of pneumonia and pleural effusion requiring thoracentesis approximately 3 years ago as well. Denies COPD. Plan to cycle troponins and monitor, rule out ACS. ECG SR with sinus arrhythmia , no ischemic changes. [facility] Patient Stated Medical History Cerebrovascular Accident No Paralysis No Seizures No Syncope No Angina No Cardiac Arrhythmia No Hypertension Yes Asthma No Bronchitis No Chronic Obstructive Pulmonary No Disease (COPD) Pneumonia No Pulmonary Edema No Pulmonary Embolism No Sleep Apnea No Tuberculosis No Other Respiratory No Diabetes Mellitus Type 1 No Diabetes Mellitus Type 2 No Cirrhosis No Gastroesophageal Reflux Yes: well controlled- no meds Disease Gastrointestinal Bleeding No Hepatitis No Hiatal Hernia No Obstructive Bowel No Ulcer No Other GI No Other Hematologic Yes: RH NEGATIVE Osteoarthritis Yes: knees, hands Other Musculoskeletal No Shingles Yes Anesthesia Reactions No Blood Transfusions No Chemotherapy No Malignant Hyperthermia No Other No Depression Yes Post Menopausal Yes Now No Clinic Medical History (Last Reviewed 11/22/17 @ 16:00 by Aditya Ordoñez MD) Depression (Chronic Medical) GERD (gastroesophageal reflux disease) (Chronic Medical) HTN (hypertension) (Chronic Medical) Hypothyroid (Chronic Medical) Surgical History: R TKA-10/28/17 Family History: Family History (Last Reviewed 12/13/17 @ 11:12 by Nimo Blair RN) Father Heart attack Mother High blood pressure - Social History Smoking status: Never smoker second hand exposure: No Substance use type: does not use Alcohol intake: former Alcohol intake frequency: does not drink Household members: spouse Current occupational status: retired Does patient use chewing tobacco?: No Current residence: Apartment/Private Home Medications Home Medications Medication Instructions Recorded Confirmed Type Levothyroxine Tab [Synthroid] 75 mcg PO ACB 06/17/17 01/10/18 History Torsemide [Demadex] 20 mg PO DAILY 06/17/17 01/10/18 History Aspirin *EC* [Ecotrin] 81 mg PO BID tab 10/29/17 01/10/18 Rx Docusate Sodium [Colace] 100 mg PO BID cap 10/29/17 01/10/18 Rx Naproxen [Aleve (Naproxen) 220 mg] 440 mg PO BID PRN tab 10/29/17 01/10/18 Rx Amitriptyline [Elavil] 1 tab PO HS 12/21/17 01/10/18 History Benazepril [Lotensin] 20 mg PO DAILY 12/21/17 01/10/18 History Citalopram [Celexa] 1 tab PO DAILY 12/21/17 01/10/18 History Acetaminophen [Tylenol] 650 mg PO QID tab 12/31/17 01/10/18 Rx Oxycodone *IR* [Roxicodone *Ir*] 5 - 15 mg PO Q3H PRN #30 tab 12/31/17 01/10/18 Rx PEG 3350 17gm PACKET [Miralax] 17 gm PO DAILY packet 12/31/17 01/10/18 Rx Allergies Allergy/AdvReac Type Severity Reaction Status Date / Time No Known Allergies Allergy Verified 01/10/18 12:04 Exam Vital signs: Temperature 97.5 F 12/30/17 11:25 Pulse Rate 91 12/30/17 13:25 Respiratory Rate 18 12/30/17 13:31 Blood Pressure 132/72 12/30/17 13:25 Pulse Oximetry 98 12/30/17 13:31 - Constitutional no acute distress - Routine HEENT Exam Head: Present: normocephalic, atraumatic Eye: Present: PERRL, conjunctivae pink ENT: Present: mucous membranes moist - Routine Neck Exam Absent: JVD, carotid bruit, thyromegaly - Routine Respiratory Exam Present: CTA bilaterally - Routine Cardiovascular Exam Present: no murmur - Routine Abdominal Exam Present: soft - Routine Extremities Exam Present: no edema - Routine Skin Exam Present: intact - Routine Neurological Exam Present: alert, oriented X3 - Routine Psychiatric Exam Present: normal affect, normal thought process Results 12/30/17 06:50 Comprehensive Metabolic Panel 12/30/17 Range/Units 06:50 Sodium 145 H (134-144) MEQ/L Potassium 4.0 (3.6-5) MEQ/L Chloride 104 (98-107) MEQ/L Carbon Dioxide 28 (22-30) MEQ/L BUN 22.0 H (7-17) MG/DL Creatinine 0.8 (0.7-1.2) mg/dL Glucose 103 (65-110) MG/DL Calcium 10.2 (8.4-10.2) MG/DL Intake and Output 12/29/17 12/30/17 12/30/17 22:59 06:59 14:59 Intake Total 1790 / 1790 Balance 1790 / 1790 Intake: IV 1790 / 1790 Famotidine Pb 20 mg In 50 ml @ 50 / 50 100 mls/hr IV PREOP ONE Rx#: [id number] Lr 1,000 ml @ 50 mls/hr IV . 1520 / 1520 Q20H BRITTANY Rx#:[id number] Tranexamic Acid 1,000 mg In Ns 220 / 220 100 ml @ 660 mls/hr IV INTRAOP ONE Rx#:[id number] Oral 0 / 0 Other: Weight 97.4 kg Laboratory Results - last 24 hr 12/30/17 06:50 Turbidity < 20 Sodium 145 H Potassium 4.0 Chloride 104 Carbon Dioxide 28 Anion Gap 13 BUN 22.0 H Creatinine 0.8 GFR Calculation 72 BUN/Creatinine Ratio 28 H Glucose 103 Calculated Osmolality 282 H Calcium 10.2 Icterus Index < 2 Specimen Hemolysis < 15 EKG interpretations - EKG EKG results cardiology: normal ST/T, no acute changes - Dysrhythmias Sinus rhythms and dysrhythmias: sinus rhythm (with Sinus Arrhythmia) Assessment and Plan - Assessment and Plan (1) Obesity, morbid, BMI 40.0-49.9 Status: Acute (2) Hypertension Status: Acute (3) GERD (gastroesophageal reflux disease) Status: Acute (4) Chest pain Status: Acute - Assessment and Plan Plan to trend troponin, monitor symptoms to rule out ACS. No ischemic changes on EKG, frequent PVC's on tele w/bigeminal runs. Symptoms not related to PVC's. Will check a TSH and Mag. GI cocktail, initiate PPI. Hospital Course Summary Disclaimer: The visit summary below is not to be considered part of the above Progress Note. <Rainer Byrd - Last Filed: 01/10/18 13:41> [facility] Patient Stated Medical History Cerebrovascular Accident No Paralysis No Seizures No Syncope No Angina No Cardiac Arrhythmia No Hypertension Yes Asthma No Bronchitis No Chronic Obstructive Pulmonary No Disease (COPD) Pneumonia No Pulmonary Edema No Pulmonary Embolism No Sleep Apnea No Tuberculosis No Other Respiratory No Diabetes Mellitus Type 1 No Diabetes Mellitus Type 2 No Cirrhosis No Gastroesophageal Reflux Yes: well controlled- no meds Disease Gastrointestinal Bleeding No Hepatitis No Hiatal Hernia No Obstructive Bowel No Ulcer No Other GI No Other Hematologic Yes: RH NEGATIVE Osteoarthritis Yes: knees, hands Other Musculoskeletal No Shingles Yes Anesthesia Reactions No Blood Transfusions No Chemotherapy No Malignant Hyperthermia No Other No Depression Yes Post Menopausal Yes Now No Clinic Medical History (Last Reviewed 11/22/17 @ 16:00 by Aditya Ordoñez MD) Depression (Chronic Medical) GERD (gastroesophageal reflux disease) (Chronic Medical) HTN (hypertension) (Chronic Medical) Hypothyroid (Chronic Medical) Family History: Family History (Last Reviewed 12/13/17 @ 11:12 by Nimo Blair RN) Father Heart attack Mother High blood pressure Exam Vital signs: Temperature 97.6 F 12/31/17 11:58 Pulse Rate 88 12/31/17 11:58 Respiratory Rate 14 12/31/17 11:58 Blood Pressure 112/61 12/31/17 11:58 Pulse Oximetry 93 12/31/17 11:58 Results 12/31/17 03:54 12/31/17 03:54 Assessment and Plan - Attestation Attestation Narrative: 01/10/18 13:41 Recommendation After examining the patient I agree with the above assessment. I am involved in the formulation of the patient's plan of care. - Assessment and Plan (1) GERD (gastroesophageal reflux disease) Status: Acute (2) Hypertension Status: Acute (3) Obesity, morbid, BMI 40.0-49.9 Status: Acute (4) Chest pain Status: Acute Hospital Course Summary Disclaimer: The visit summary below is not to be considered part of the above Progress Note.
[2017-12-30] MEDS: ASPIRIN *EC* 81 MG TABLET PO SCH ×2 (14:35→21:20)
[2017-12-30] MEDS: BENAZEPRIL 20 MG TABLET PO SCH (14:35)
[2017-12-30] MEDS: DOCUSATE SODIUM 100 MG CAPSULE PO SCH ×2 (14:36→21:20)
[2017-12-30] MEDS: ACETAMINOPHEN 325 MG TABLET PO SCH ×4 (14:36→21:20)
[2017-12-30] MEDS: CITALOPRAM 20 MG TABLET PO SCH (14:36)
[2017-12-30] MEDS: POLYETHYL GLYCOL 3350 17gm PACKET PO SCH (14:37)
[2017-12-30] MEDS: TORSEMIDE 20 MG TABLET PO SCH (14:37)
--- NOTE | 2017-12-30 14:58 | Anesthesia Postoperative Note ---
- Date and Time Date: 12/30/17 Time: 14:58 - Status Patient Participated in Evaluation: Patient Participated in Person (t) Vital Signs: Temperature 97.5 F 12/30/17 11:25 Pulse Rate 91 12/30/17 13:25 Respiratory Rate 18 12/30/17 13:31 Blood Pressure 132/72 12/30/17 13:25 Pulse Oximetry 98 12/30/17 13:31 Respiratory Function: Airway Patent Cardiovascular Function: Regular Pulse EKG: Sinus Rhythm Mental Status: Alert and Oriented Pain Intensity: 0 Hydration: Taking PO Fluids Complications During Recover: None Apparent - Follow-Up Instructions Instructions: Per Surgeon
[2017-12-30] MEDS ORDERED: GI COCKTAIL 30 ML PO ONE (15:13)
--- NOTE | 2017-12-30 16:02 | XRay Report ---
INDICATION: chest pain PROCEDURE: CHEST 2-VIEWS UPRIGHT (PA & LAT) Encounter: Initial COMPARISON: July 13, 2017 FINDINGS: The lungs are clear without evidence of focal abnormal airspace opacity. There is no pleural effusion or pneumothorax. Surgical clips in the left upper abdomen. The heart size, mediastinal contours and pulmonary vascularity are within normal limits. Small enchondromas or bone infarcts in the humeral heads. IMPRESSION: No acute cardiopulmonary disease. .
[2017-12-30] MEDS: NAPROXEN 220 MG TABLET PO SCH (16:37)
[2017-12-30] MEDS: CEFAZOLIN 2 G in NS 50 ML IV SCH (16:38)
[2017-12-30] MEDS ORDERED: ASPIRIN *EC* 81 MG TABLET PO SCH (21:00)
[2017-12-30] MEDS ORDERED: AMITRIPTYLINE 100 MG TABLET PO SCH (21:00)
[2017-12-30] MEDS ORDERED: SENNOSIDES 8.6 MG TABLET PO SCH (21:00)
[2017-12-30] MEDS: Oxycodone *IR* 5 MG TABLET PO PRN ×2 (21:29→23:36)
[2017-12-31] MEDS: CEFAZOLIN 2 G in NS 50 ML IV SCH (00:48)
[2017-12-31] MEDS: NS 1,000 ML IV SCH (00:48)
[2017-12-31] MEDS: Oxycodone *IR* 5 MG TABLET PO PRN (05:06)
[2017-12-31] MEDS: NOZIN NASAL SWAB NAS SCH ×2 (06:07→14:08)
[2017-12-31] MEDS ORDERED: PANTOPRAZOLE 20 MG TABLET PO SCH (06:30)
[2017-12-31] MEDS ORDERED: LEVOTHYROXINE 75 MCG TABLET PO SCH (06:30)
[2017-12-31] MEDS ORDERED: SENNOSIDES 8.6 MG TABLET PO PRN (08:43)
[2017-12-31] MEDS: CITALOPRAM 20 MG TABLET PO SCH (08:47)
[2017-12-31] MEDS: TORSEMIDE 20 MG TABLET PO SCH (08:47)
[2017-12-31] MEDS: NAPROXEN 220 MG TABLET PO SCH (08:47)
[2017-12-31] MEDS: POLYETHYL GLYCOL 3350 17gm PACKET PO SCH (08:47)
[2017-12-31] MEDS: BENAZEPRIL 20 MG TABLET PO SCH (08:48)
[2017-12-31] MEDS: ACETAMINOPHEN 325 MG TABLET PO SCH ×2 (08:48→14:08)
[2017-12-31] MEDS: ASPIRIN *EC* 81 MG TABLET PO SCH (08:48)
[2017-12-31] MEDS: DOCUSATE SODIUM 100 MG CAPSULE PO SCH (08:48)
[2017-12-31 09:20] VITALS: TEMP 97.6
--- NOTE | 2017-12-31 09:22 | Orthopedic Progress Note ---
Date: Date: 12/31/17 Time: 917 Subjective/Severity of Illness: Ramya is resting in bed when I visit. Yesterday afternoon patient complained of substernal chest pain and shortness of breathe. Was evaluated by cardiology, symptoms likly GERD. After GI cocktail patient states she has not had any further chest pain or shortness of breathe. Serial troponin have been negative so far. States her pain has been well controlled on Roxicodone, took 2 this morning. Her O2 sats 84% early this morning and was placed on 2LNC thought due to pain meds. She states after her right TKA earlier this year she would only take 1 Rubi and tylenol for pain control. Denies shortness of breathe, chest pain, nausea. Orthopedic Exam Vital signs: Temperature 97.8 F 12/31/17 04:00 Pulse Rate 77 12/31/17 09:11 Respiratory Rate 18 12/31/17 09:11 Blood Pressure 141/71 H 12/31/17 09:11 Pulse Oximetry 98 12/31/17 09:11 - Constitutional General Appearance: Present: alert, orientated x3, no acute distress, well developed, well nourished - Respiratory Exam Present: CTA bilaterally, non-labored - Cardiovascular Exam Present: Regular Rate/Rhythm, pedal pulses intact - Extremities Exam Present: no edema, pulses intact. Absent: calf tenderness - Dressing Dressing: dry, intact, no drainage - Neurological Exam Present: intact to light touch, no deficits - Labs Result Diagrams: 12/31/17 03:54 12/31/17 03:54 Abnormal lab results 12/31/17 12/31/17 Range/Units 03:54 03:54 Hgb 11.7 L (12-16) GM/DL BUN 18.0 H (7-17) MG/DL H & H 12/31/17 Range/Units 03:54 Hgb 11.7 L (12-16) GM/DL Hct 36.1 (36-46) % Orthopedic Assessment and Plan (1) Primary osteoarthritis of left knee Status: Acute Assessment and Plan: Current anti-coagulation protocol with ASA 81mg BID and SCDs for VTE prophylaxis. PT/OT services to improve independent function. Discharge Planning per Case Management. Attempt to wean patient off oxygen this morning, decrease Roxicodone dose and monitor pain control. Expect discharge home today if continues to do well and cleared from cardiology standpoint. - Anticoagulation Therapy Anticoagulation: ASA 81 mg PO BID x6 weeks Hospital Course Summary Disclaimer: The visit summary below is not to be considered part of the above Progress Note.
[2017-12-31 12:02] VITALS: BP 141/71; PULSE 77; RESP 18; O2SAT 98
--- NOTE | 2017-12-31 13:22 | Discharge Summary ---
Orthopedic Discharge Info Date of admission: 12/30/17 06:29 Primary care physician: Rakesh Lambert MD Attending Physician: Aditya Ordoñez MD Consults: 12/30/17 06:42 Consult to Anesthesiology [CONS] Routine Reason For Exam: Preoperative Assessment 12/30/17 11:31 Case Management Consult [CONS] Routine Reason For Exam: Discharge Planning DME-Walker [CONS] Routine Height: 5 ft Weight: 97.4 kg Total Joint Outpatient Therapy [CONS] Routine Comment: Remove dressing in 2 weeks 12/30/17 14:51 Physician Consult [CONS] Routine Consulting Provider: Rainer Byrd Reason For Exam: chest pain Ordering Provider has Notified Gluing Machine Operator Automatic: Yes - Discharge Diagnosis (1) Primary osteoarthritis of left knee Status: Acute - Procedures Procedures: Procedures Replacement of Right Knee Joint with Synthetic Substitute, Uncemented, Open Approach (10/28/17) Robotic Assisted Procedure of Lower Extremity, Open Approach (10/28/17) - Laboratory Result Diagrams: 12/31/17 03:54 12/31/17 03:54 Laboratory: Abnormal lab results 12/31/17 12/31/17 12/31/17 Range/Units 03:54 03:54 03:54 Hgb 11.7 L (12-16) GM/DL BUN 18.0 H (7-17) MG/DL Cholesterol 128 L (132-199) mg/dL HDL Cholesterol 33 L (40-60) mg/dL H & H 12/31/17 Range/Units 03:54 Hgb 11.7 L (12-16) GM/DL Hct 36.1 (36-46) % Orthopedic Discharge HPI - HPI Comments This patient was admitted for elective surgical tx of end stage degenerative joint disease that failed to respond to conservative treatment. Further details of this is found in the admission H&P. Orthopedic Hospital Course Hospital course: 12/31/17 13:15 After appropriate preoperative clearance and signing of operative consent, the patient was given IV antibiotics, according to orthopedic protocol. The patient was taken to the operating room and underwent elective total knee arthroplasty. Following surgery, antibiotics were discontinued less than 24 hours according to joint protocol. Appropriate anticoagulants were initiated and SCDs added for DVT prevention. The dressing was clean, dry, and intact. Pain control was obtained via multimodal approach. Bowel motivation addressed with scheduled and PRN medications. Early mobilization was initiated through PT services. Discharge arrangements made by a collaborative effort between the patient and Case Management. She developed some chest pain the day of surgery and cardiology services were consulted. Troponin and EKG were normal/unchanged. ECHO was obtained and results are pending but cardiology felt she could be followed in outpatient setting for stress testing. Follow-up is scheduled in 2-[address] Ordoñez. Discharge instructions given by orthopedic providers and nursing staff at discharge. Discharge condition was good. Care extended to > 2 midnight stays?: No Discharge Plan - Med Rec/Dispo Referrals/Follow Up: Aditya Ordoñez MD [Physician] - 01/24/18 10:45 am Brennonuvelizabeth Instructions: [facility] Postop Instructions Additional Instructions: PHYSICAL THERAPY AT [facility] JANUARY 04 AT 10:00 AM. IF THAT TIME DOES NOT WORK, CONTACT [facility] AT P#[phone] TO MAKE OTHER ARRANGEMENTS. Prescriptions: New Docusate Sodium [Colace] 100 mg PO BID capsule Milk of Magnesia [Mom] 30 ml PO DAILY udc PEG 3350 17gm PACKET [Miralax] 17 gm PO DAILY packet Oxycodone *IR* [Roxicodone *Ir*] 5 - 15 mg PO Q3H PRN #30 tab PRN Reason: Breakthrough Pain Acetaminophen [Tylenol] 650 mg PO QID tablet Continue Levothyroxine Tab [Synthroid] 75 mcg PO ACB Aspirin *EC* [Ecotrin] 81 mg PO BID tab Docusate Sodium [Colace] 100 mg PO BID cap Naproxen [Aleve (Naproxen) 220 mg] 440 mg PO BID PRN tab PRN Reason: Pain Citalopram [Celexa] 1 tab PO DAILY Benazepril [Lotensin] 20 mg PO DAILY Amitriptyline [Elavil] 1 tab PO HS Torsemide [Demadex] 20 mg PO DAILY - Disposition 01 Discharged Home, Self-Care - Dismissal Complete Discharge Instructions are:: Complete
--- NOTE | 2017-12-31 13:43 | Cardiology Progress Note ---
<Mai Lo L - Last Filed: 12/31/17 15:50> Subjective Principal diagnosis: chest pain Interval history: Mrs. Wagner is seen this am, upright and dressed in her chair. She reports a complete resolution of her chest pain both substernal that radiated to her back and the right chest pain worse with inspiration. The substernal pain was relieved after taking the GI cocktail yesterday. No cough or sputum production. Pt participating in PT this am, reports feeling very well; excited to continue to lose weight, she has dropped 40lbs since October. Exam Vital signs: Temperature 97.6 F 12/31/17 11:58 Pulse Rate 88 12/31/17 11:58 Respiratory Rate 14 12/31/17 11:58 Blood Pressure 112/61 12/31/17 11:58 Pulse Oximetry 93 12/31/17 11:58 Inpatient Medications: Generic Name Dose Route Start Last Admin Trade Name Freq PRN Reason Stop Dose Admin Acetaminophen 650 mg 12/30/17 11:31 12/31/17 08:48 Tylenol PO 650 mg QID BRITTANY Administration Amitriptyline HCl 100 mg 12/30/17 21:00 12/30/17 21:20 Elavil PO 100 mg HS BRITTANY Administration Aspirin 81 mg 12/30/17 11:31 12/31/17 08:48 Ecotrin PO 81 mg BID BRITTANY Administration Benazepril HCl 20 mg 12/30/17 11:31 12/31/17 08:48 Lotensin PO 20 mg DAILY BRITTANY Administration Bisacodyl 10 mg 01/01/18 20:00 Dulcolax RECTALLY 01/01/18 20:01 DAILY BRITTANY Citalopram Hydrobromide 20 mg 12/30/17 11:31 12/31/17 08:47 Celexa PO 20 mg DAILY BRITTANY Administration Diphenhydramine HCl 25 mg 12/30/17 11:31 Benadryl IVP Q6HR PRN Itching Diphenhydramine HCl 25 mg 12/30/17 11:31 Benadryl PO Q6H PRN Itching Docusate Sodium 100 mg 12/30/17 11:31 12/31/17 08:48 Colace PO 100 mg BID BRITTANY Administration Isopropyl Alcohol 1 each 12/30/17 14:00 12/31/17 06:07 Nozin Nasal Swab JAZLYN 1 each 0600,1400,2200 BRITTANY Administration Levothyroxine Sodium 75 mcg 12/31/17 06:30 12/31/17 06:07 Synthroid PO 75 mcg ACB BRITTANY Administration Lorazepam 1 mg 12/30/17 11:31 Ativan PO HS PRN Sleep Magnesium Hydroxide 30 ml 01/01/18 08:00 Mom PO 01/01/18 08:01 DAILY BRITTANY Naproxen 440 mg 12/30/17 17:30 12/31/17 08:47 Aleve (Naproxen) 220 Mg PO 440 mg BIDWM BRITTANY Administration Ondansetron HCl 4 mg 12/30/17 11:31 Zofran IVP Q4H PRN Nausea &/or vomiting Oxycodone HCl 5 - 15 mg 12/30/17 11:31 12/31/17 05:06 Roxicodone *Ir* PO 10 mg Q3H PRN Administration Breakthrough pain Pantoprazole Sodium 20 mg 12/31/17 06:30 12/31/17 06:07 Protonix PO 20 mg ACB BRITTANY Administration Polyethylene Glycol 17 gm 12/30/17 11:31 12/31/17 08:47 Miralax PO 17 gm DAILY BRITTANY Administration Senna 17.2 mg 12/30/17 21:00 12/30/17 21:20 Senna Lax PO 17.2 mg HS BRITTANY Administration Senna 17.2 mg 12/31/17 08:43 Senna Lax PO DAILY PRN Constipation Torsemide 20 mg 12/30/17 11:31 12/31/17 08:47 Demadex PO 20 mg DAILY BRTITANY Administration Discontinued Medications Generic Name Dose Route Start Last Admin Trade Name Freq PRN Reason Stop Dose Admin Acetaminophen 1,000 mg 12/30/17 06:00 12/30/17 07:20 Tylenol PO 12/30/17 06:01 1,000 mg PREOP ONE Administration Aspirin 81 mg 12/30/17 21:00 Ecotrin PO BID BRITTANY Cefazolin Sodium 2 g 12/30/17 08:30 12/30/17 08:30 Kefzol IVP 12/30/17 08:31 2 g PREOP ONE Administration Dexamethasone 10 mg 12/30/17 06:00 12/30/17 07:35 Decadron IVP 12/30/17 06:01 10 mg PREOP ONE Administration Famotidine/Sodium Chloride 20 mg in 50 mls @ 100 mls/hr 12/30/17 06:00 08:00 Pepcid Premix IV 12/30/17 06:29 Infused PREOP ONE Infusion Epinephrine HCl 0.25 mg/ 62.25 mls @ 1 mls/hr 12/30/17 08:00 12/30/17 09:34 Bupivacaine HCl 30 ml/ OPSITE 01/01/18 22:14 1 mls/hr Ketorolac Tromethamine 60 mg/ INTRAOP ONE Administration Sodium Chloride Protocol Tranexamic Acid 1,000 mg/ 110 mls @ 660 mls/hr 12/30/17 06:00 12/30/17 09:28 Sodium Chloride IV 12/30/17 06:09 Infused INTRAOP ONE Infusion Tranexamic Acid 1,000 mg/ 110 mls @ 660 mls/hr 12/30/17 07:00 12/30/17 10:20 Sodium Chloride IV 12/30/17 07:09 Infused INTRAOP ONE Infusion Lactated Ringer's 1,000 mls @ 50 mls/hr 12/30/17 16:15 12/30/17 11:37 Lactated Ringers IV Infused .Q20H BRITTANY Infusion Cefazolin Sodium 2 g/ Sodium 50 mls @ 100 mls/hr 12/30/17 17:00 12/31/17 01: 18 Chloride IV 12/31/17 01:29 Infused Q8H BRITTANY Infusion Sodium Chloride 1,000 mls @ 80 mls/hr 12/30/17 11:31 12/31/17 08:15 Normal Saline IV Infused .[id number] BRITTANY Infusion Isopropyl Alcohol 1 each 12/30/17 12:00 12/30/17 07:29 Nozin Nasal Swab JAZLYN 12/30/17 12:03 1 each Q1M BRITTANY Administration Isopropyl Alcohol 1 each 12/30/17 11:31 12/30/17 11:36 Nozin Nasal Swab JAZLYN 12/30/17 11:32 1 each POSTOP ONE Administration Lidocaine HCl 1 mg 12/30/17 06:00 12/30/17 07:37 Xylocaine-Mpf 1% Vial ID 12/30/17 06:01 Not Given O ONE Metoclopramide HCl 10 mg 12/30/17 06:00 12/30/17 07:38 Reglan IVP 12/30/17 06:01 Not Given PREOP ONE Naproxen 440 mg 12/30/17 11:31 12/30/17 14:35 Aleve (Naproxen) 220 Mg PO 440 mg BID BRITTANY Administration Ondansetron HCl 4 mg 12/30/17 06:00 12/30/17 07:32 Zofran IVP 12/30/17 06:01 4 mg PREOP ONE Administration Pharmacy Profile Note 30 ml 12/30/17 15:13 12/30/17 16:09 Maalox Plus/Lidocaine Susp PO 12/30/17 15:14 30 ml O ONE Administration Sodium Chloride 10 - 80 ml 12/30/17 11:59 Iv Flush IV PRN PRN Flushing Vancomycin HCl 1,000 mg 12/30/17 08:03 12/30/17 10:15 Vancocin IAR 12/30/17 08:04 1,000 mg O ONE Administration - Constitutional no acute distress - Routine HEENT Exam Head: Present: normocephalic, atraumatic Eye: Present: PERRL ENT: Present: mucous membranes moist - Routine Neck Exam Absent: JVD, carotid bruit - Routine Respiratory Exam Present: CTA bilaterally - Routine Cardiovascular Exam Present: RRR, no murmur - Routine Abdominal Exam Present: soft, normoactive bowel sounds Results 12/31/17 03:54 12/31/17 03:54 Cardiac Enzymes 12/30/17 12/30/17 12/30/17 Range/Units 14:24 18:09 21:26 Troponin I < 0.012 < 0.012 < 0.012 (0-0.12) ng/ml Lipids 12/31/17 Range/Units 03:54 Triglycerides 111 (35-135) mg/dL Cholesterol 128 L (132-199) mg/dL HDL Cholesterol 33 L (40-60) mg/dL Cholesterol/HDL Ratio 3.9 (0-4.0) RATIO CBC 12/31/17 Range/Units 03:54 Hgb 11.7 L (12-16) GM/DL Hct 36.1 (36-46) % Comprehensive Metabolic Panel 12/31/17 Range/Units 03:54 Sodium 144 (134-144) MEQ/L Potassium 4.0 (3.6-5) MEQ/L Chloride 106 (98-107) MEQ/L Carbon Dioxide 29 (22-30) MEQ/L BUN 18.0 H (7-17) MG/DL Creatinine 0.8 (0.7-1.2) mg/dL Glucose 97 (65-110) MG/DL Calcium 9.3 D (8.4-10.2) MG/DL Intake and Output 12/30/17 12/31/17 12/31/17 22:59 06:59 14:59 Intake Total 290 / 290 1651.333 / 1651.333 556 / 556 Balance 290 / 290 1651.333 / 1651.333 556 / 556 Intake: IV 50 / 50 1051.333 / 1051.333 556 / 556 Cefazolin 2 g In Ns 50 ml @ 100 50 / 50 50 / 50 mls/hr IV Q8H BRITTANY Rx#: [id number] Ns 1,000 ml @ 80 mls/hr IV . 1001.333 / 1001.333 556 / 556 [id number] BRITTANY Rx#:[id number] Oral 240 / 240 600 / 600 Other: Urine Color Yellow # Voids 1 1 1 Weight 101.6 kg Patient Weight 01/01/18 06:59 Weight 101.6 kg - Imaging and Cardiology Echo: report reviewed EKG results: image reviewed Assessment and Plan - Assessment and Plan (1) Obesity, morbid, BMI 40.0-49.9 Status: Acute (2) Hypertension Status: Acute (3) GERD (gastroesophageal reflux disease) Status: Acute (4) Chest pain Status: Acute - Assessment and Plan 12/30/17: Plan to trend troponin, monitor symptoms to rule out ACS. No ischemic changes on EKG, frequent PVC's on tele w/bigeminal runs. Symptoms not related to PVC's. Will check a TSH and Mag. GI cocktail, initiate PPI. 12/31/17: Troponin negative x3. Chest pain relieved after GI cocktail, likely GERD or gastritis from prolonged NSAID use. Tele stable SR, sinus arrhythmia and infrequent PVC's. TSH, mag and AM lab all WNL. Lipid panel WNL, LDL 84. No indication for statin therapy. Chest xray yesterday, no acute cardiopulmonary processes. Echo done today: unremarkable, EF wnl Home on protonix daily, follow up with PCP for further GERD/gastritis management. Recommend CAD risk management with daily ASA 81mg. Recommend f/u with [facility] in 1-2 weeks for a possible OP stress test to further work up pt's symptoms of exertional dyspnea at home. Hospital Course Summary Disclaimer: The visit summary below is not to be considered part of the above Progress Note. <Rainer Byrd - Last Filed: 01/10/18 13:41> Exam Vital signs: Temperature 97.6 F 12/31/17 11:58 Pulse Rate 88 12/31/17 11:58 Respiratory Rate 14 12/31/17 11:58 Blood Pressure 112/61 12/31/17 11:58 Pulse Oximetry 93 12/31/17 11:58 Inpatient Medications: Discontinued Medications Generic Name Dose Route Start Last Admin Trade Name Freq PRN Reason Stop Dose Admin Acetaminophen 1,000 mg 12/30/17 06:00 12/30/17 07:20 Tylenol PO 12/30/17 06:01 1,000 mg PREOP ONE Administration Acetaminophen 650 mg 12/30/17 11:31 12/31/17 14:08 Tylenol PO 650 mg QID BRITTANY Administration Amitriptyline HCl 100 mg 12/30/17 21:00 12/30/17 21:20 Elavil PO 100 mg HS BRITTANY Administration Aspirin 81 mg 12/30/17 11:31 12/31/17 08:48 Ecotrin PO 81 mg BID BRITTANY Administration Aspirin 81 mg 12/30/17 21:00 Ecotrin PO BID BRITTANY Benazepril HCl 20 mg 12/30/17 11:31 12/31/17 08:48 Lotensin PO 20 mg DAILY BRITTANY Administration Bisacodyl 10 mg 01/01/18 20:00 Dulcolax RECTALLY 01/01/18 20:01 DAILY BRITTANY Cefazolin Sodium 2 g 12/30/17 08:30 12/30/17 08:30 Kefzol IVP 12/30/17 08:31 2 g PREOP ONE Administration Citalopram Hydrobromide 20 mg 12/30/17 11:31 12/31/17 08:47 Celexa PO 20 mg DAILY BRITTANY Administration Dexamethasone 10 mg 12/30/17 06:00 12/30/17 07:35 Decadron IVP 12/30/17 06:01 10 mg PREOP ONE Administration Diphenhydramine HCl 25 mg 12/30/17 11:31 Benadryl IVP Q6HR PRN Itching Diphenhydramine HCl 25 mg 12/30/17 11:31 Benadryl PO Q6H PRN Itching Docusate Sodium 100 mg 12/30/17 11:31 12/31/17 08:48 Colace PO 100 mg BID BRITTANY Administration Famotidine/Sodium Chloride 20 mg in 50 mls @ 100 mls/hr 12/30/17 06:00 08:00 Pepcid Premix IV 12/30/17 06:29 Infused PREOP ONE Infusion Epinephrine HCl 0.25 mg/ 62.25 mls @ 1 mls/hr 12/30/17 08:00 12/30/17 09:34 Bupivacaine HCl 30 ml/ OPSITE 01/01/18 22:14 1 mls/hr Ketorolac Tromethamine 60 mg/ INTRAOP ONE Administration Sodium Chloride Protocol Tranexamic Acid 1,000 mg/ 110 mls @ 660 mls/hr 12/30/17 06:00 12/30/17 09:28 Sodium Chloride IV 12/30/17 06:09 Infused INTRAOP ONE Infusion Tranexamic Acid 1,000 mg/ 110 mls @ 660 mls/hr 12/30/17 07:00 12/30/17 10:20 Sodium Chloride IV 12/30/17 07:09 Infused INTRAOP ONE Infusion Lactated Ringer's 1,000 mls @ 50 mls/hr 12/30/17 16:15 12/30/17 11:37 Lactated Ringers IV Infused .Q20H BRITTANY Infusion Cefazolin Sodium 2 g/ Sodium 50 mls @ 100 mls/hr 12/30/17 17:00 12/31/17 01: 18 Chloride IV 12/31/17 01:29 Infused Q8H BRITTANY Infusion Sodium Chloride 1,000 mls @ 80 mls/hr 12/30/17 11:31 12/31/17 08:15 Normal Saline IV Infused .[id number] BRITTANY Infusion Isopropyl Alcohol 1 each 12/30/17 12:00 12/30/17 07:29 Nozin Nasal Swab JAZLYN 12/30/17 12:03 1 each Q1M BRITTANY Administration Isopropyl Alcohol 1 each 12/30/17 11:31 12/30/17 11:36 Nozin Nasal Swab JAZLYN 12/30/17 11:32 1 each POSTOP ONE Administration Isopropyl Alcohol 1 each 12/30/17 14:00 12/31/17 14:08 Nozin Nasal Swab JAZLYN 1 each 0600,1400,2200 BRITTANY Administration Levothyroxine Sodium 75 mcg 12/31/17 06:30 12/31/17 06:07 Synthroid PO 75 mcg ACB BRITTANY Administration Lidocaine HCl 1 mg 12/30/17 06:00 12/30/17 07:37 Xylocaine-Mpf 1% Vial ID 12/30/17 06:01 Not Given O ONE Lorazepam 1 mg 12/30/17 11:31 Ativan PO HS PRN Sleep Magnesium Hydroxide 30 ml 01/01/18 08:00 Mom PO 01/01/18 08:01 DAILY BRITTANY Metoclopramide HCl 10 mg 12/30/17 06:00 12/30/17 07:38 Reglan IVP 12/30/17 06:01 Not Given PREOP ONE Naproxen 440 mg 12/30/17 11:31 12/30/17 14:35 Aleve (Naproxen) 220 Mg PO 440 mg BID BRITTANY Administration Naproxen 440 mg 12/30/17 17:30 12/31/17 08:47 Aleve (Naproxen) 220 Mg PO 440 mg BIDWM BRITTANY Administration Ondansetron HCl 4 mg 12/30/17 06:00 12/30/17 07:32 Zofran IVP 12/30/17 06:01 4 mg PREOP ONE Administration Ondansetron HCl 4 mg 12/30/17 11:31 Zofran IVP Q4H PRN Nausea &/or vomiting Oxycodone HCl 5 - 15 mg 12/30/17 11:31 12/31/17 05:06 Roxicodone *Ir* PO 10 mg Q3H PRN Administration Breakthrough pain Pantoprazole Sodium 20 mg 12/31/17 06:30 12/31/17 06:07 Protonix PO 20 mg ACB BRITTANY Administration Pharmacy Profile Note 30 ml 12/30/17 15:13 12/30/17 16:09 Maalox Plus/Lidocaine Susp PO 12/30/17 15:14 30 ml O ONE Administration Polyethylene Glycol 17 gm 12/30/17 11:31 12/31/17 08:47 Miralax PO 17 gm DAILY BRITTANY Administration Senna 17.2 mg 12/30/17 21:00 12/30/17 21:20 Senna Lax PO 17.2 mg HS BRITTANY Administration Senna 17.2 mg 12/31/17 08:43 Senna Lax PO DAILY PRN Constipation Sodium Chloride 10 - 80 ml 12/30/17 11:59 Iv Flush IV PRN PRN Flushing Torsemide 20 mg 12/30/17 11:31 12/31/17 08:47 Demadex PO 20 mg DAILY BRITTANY Administration Vancomycin HCl 1,000 mg 12/30/17 08:03 12/30/17 10:15 Vancocin IAR 12/30/17 08:04 1,000 mg O ONE Administration Results 12/31/17 03:54 12/31/17 03:54 Assessment and Plan - Assessment and Plan (1) GERD (gastroesophageal reflux disease) Status: Acute (2) Hypertension Status: Acute (3) Obesity, morbid, BMI 40.0-49.9 Status: Acute (4) Chest pain Status: Acute - Attestation Attestation Narrative: 01/10/18 13:41 Recommendation After examining the patient I agree with the above assessment. I am involved in the formulation of the patient's plan of care. Hospital Course Summary Disclaimer: The visit summary below is not to be considered part of the above Progress Note.
--- NOTE | 2018-01-01 11:47 | Echocardiogram ---
DATE OF PROCEDURE 12/30/2017 This is a two-dimensional echo with spectral Doppler, color-flow and M-mode. It was obtained in a patient with chest pain. This is a technically difficult study. Left atrium is normal. Left ventricular end-diastolic dimension is normal. Left ventricular wall thickness is normal. LV systolic function is normal with ejection fraction of about 65%. Right atrium is normal. Right ventricle is normal. Aortic root dimension is normal. Mitral valve is morphologically normal with trace of mitral regurgitation. Aortic valve was not visualized well but Doppler studies indicate no stenosis or insufficiency. Tricuspid valve shows trace of tricuspid regurgitation with normal estimated pulmonary artery systolic pressure of 24. Pulmonary valve shows no pulmonary insufficiency. It was not visualized well. There is no pericardial effusion. IMPRESSION 1. Technically difficult study. 2. Normal LV systolic function with ejection fraction of about 65%. 3. Trace of mitral regurgitation. 4. Trace of tricuspid regurgitation with normal estimated pulmonary artery systolic pressure of 24. MTDD
[2018-01-01] MEDS ORDERED: BISACODYL 10 MG SUPPOSITORY RECTALLY SCH (20:00)
== END 2017-12-31 14:30 | disposition home or self-care (01) | DRG 470 ==
LOC: NMC.PERIOP 06:29 → SRG 11:15
PROVIDERS: ADMIT Orthopaedic Surgery; ATTEND Orthopaedic Surgery

== ENCOUNTER 2018-01-10 11:36 | Observation (INO) ==
[2018-01-10] MEDS ORDERED: SALINE FLUSH 10ml SYRINGE IV PRN (11:54)
[2018-01-10] MEDS ORDERED: NOZIN NASAL SWAB NAS ONE (11:54)
[2018-01-10] MEDS ORDERED: LIDOCAINE 1% (10mg/ml) 2mL INJ PF SDV ID ONE (11:54)
[2018-01-10 11:57] VITALS: BMI 42.5
[2018-01-10] MEDS ORDERED: CEFAZOLIN 1 G INJECTION IVP ONE ×2 (12:03→15:08)
[2018-01-10] MEDS ORDERED: CEFAZOLIN 2 G in NS 100 ML IV ONE (13:15)
[2018-01-10] MEDS: LR 1,000 ML IV SCH ×2 (15:05→16:30)
[2018-01-10] MEDS ORDERED: MORPHINE SULFATE 10 MG/ML VIAL ONE (15:34)
[2018-01-10] MEDS ORDERED: MIDAZOLAM 2mg/2ml INJECTION ONE (15:34)
[2018-01-10] MEDS ORDERED: PROPOFOL 500 MG/50 ML VIAL ONE ×2 (15:36→16:07)
[2018-01-10] MEDS ORDERED: LIDOCAINE 1% (10mg/ml) 30ml SDV INJ ONE (16:23)
[2018-01-10] MEDS ORDERED: BUPIVACAINE 0.25% (2.5mg/ml) PF 30ml INJECTION ONE (16:23)
[2018-01-10] MEDS ORDERED: BUPIVACAINE 0.5% ID ONE (16:39)
[2018-01-10] MEDS ORDERED: LIDOCAINE 1% ID ONE (16:39)
--- NOTE | 2018-01-10 17:02 | Orthopedic History & Physical ---
Orthopedic HPI - HPI Comments 67-year-old female presenting to the ER very early this morning with bleeding from her surgical site. She is Pato day status post left total knee arthroplasty and was doing well up until this point. She has not had any signs of infections his fever or chills redness around the incision or foul odor. I evaluated her today in my clinic and recommended surgical exploration of her left knee surgical wound. I reviewed the risks and benefits of this as well as expected postoperative course agree with this plan. She was [facility] as an outpatient [facility] and IV antibiotics were started. [facility] Patient Stated Medical History Cerebrovascular Accident No Paralysis No Seizures No Syncope No Other HEENT Yes: WEARS GLASSES Angina No Cardiac Arrhythmia No Hypertension Yes Asthma No Bronchitis No Chronic Obstructive Pulmonary No Disease (COPD) Pneumonia No Pulmonary Edema No Pulmonary Embolism No Sleep Apnea No Tuberculosis No Other Respiratory No Diabetes Mellitus Type 1 No Diabetes Mellitus Type 2 No Cirrhosis No Gastroesophageal Reflux Yes: well controlled- no meds Disease Gastrointestinal Bleeding No Hepatitis No Hiatal Hernia No Obstructive Bowel No Ulcer No Other GI No Other Hematologic Yes: RH NEGATIVE Osteoarthritis Yes: knees, hands Other Musculoskeletal Yes: LEFT TKA DEHISCENCE 01/10/18 Shingles Yes Anesthesia Reactions No Blood Transfusions No Chemotherapy No Malignant Hyperthermia No Other No Depression Yes Post Menopausal Yes Now No Clinic Medical History (Last Reviewed 11/22/17 @ 16:00 by Aditya Ordoñez MD) Depression (Chronic Medical) GERD (gastroesophageal reflux disease) (Chronic Medical) HTN (hypertension) (Chronic Medical) Hypothyroid (Chronic Medical) Surgical History: R TKA-10/28/17. L TKA-12/30/17 Family History: Family History (Last Reviewed 12/13/17 @ 11:12 by Nimo Blair RN) Father Heart attack Mother High blood pressure - Social History Smoking status: Never smoker second hand exposure: No Substance use type: does not use Alcohol intake: former Alcohol intake frequency: does not drink Household members: spouse Current occupational status: retired Does patient use chewing tobacco?: No Current residence: Apartment/Private Home Review of Systems - Constitutional Constitutional: Absent: chills, fever(s), night sweats - Cardiovascular Cardiovascular: Absent: chest pain, palpitations - Respiratory Respiratory: Absent: cough, dyspnea - Gastrointestinal Gastrointestinal: Absent: abdominal pain, nausea, vomiting - Genitourinary Genitourinary Female: Absent: dysuria - Musculoskeletal Musculoskeletal: Present: as per HPI - Integumentary/Breasts Integumentary: Absent: lesions, rash - Neurological Neurological: Absent: numbness, tingling Medications Home Medications Medication Instructions Recorded Confirmed Type Levothyroxine Tab [Synthroid] 75 mcg PO ACB 06/17/17 01/10/18 History Torsemide [Demadex] 20 mg PO DAILY 06/17/17 01/10/18 History Aspirin *EC* [Ecotrin] 81 mg PO BID tab 10/29/17 01/10/18 Rx Docusate Sodium [Colace] 100 mg PO BID cap 10/29/17 01/10/18 Rx Naproxen [Aleve (Naproxen) 220 mg] 440 mg PO BID PRN tab 10/29/17 01/10/18 Rx Amitriptyline [Elavil] 1 tab PO HS 12/21/17 01/10/18 History Benazepril [Lotensin] 20 mg PO DAILY 12/21/17 01/10/18 History Citalopram [Celexa] 1 tab PO DAILY 12/21/17 01/10/18 History Acetaminophen [Tylenol] 650 mg PO QID tab 12/31/17 01/10/18 Rx Oxycodone *IR* [Roxicodone *Ir*] 5 - 15 mg PO Q3H PRN #30 tab 12/31/17 01/10/18 Rx PEG 3350 17gm PACKET [Miralax] 17 gm PO DAILY packet 12/31/17 01/10/18 Rx Allergies Allergy/AdvReac Type Severity Reaction Status Date / Time No Known Allergies Allergy Verified 01/10/18 14:35 Exam - Constitutional Vital Signs: Temperature 98 F 01/10/18 14:35 Pulse Rate 65 01/10/18 14:44 Respiratory Rate 17 01/10/18 14:35 Blood Pressure 135/92 H 01/10/18 14:35 Pulse Oximetry 96 01/10/18 14:35 General: cooperative, no acute distress, well developed, well groomed Nutritional Appearance: well nourished Orientation: alert - RLE Postoperative Appearance: surgical incision healing without complication, extremity compartments are soft and nontender, neurovascullary intact to extremities - LLE Left Lower Extremity Comments: 2 cm dehiscence of the superior aspect of the anterior midline incision. No erythema no active drainage. Otherwise no abnormal swelling and the incision is otherwise healing well. - Labs Result Diagrams: 01/10/18 12:53 01/10/18 12:53 Abnormal lab results 01/10/18 Range/Units 12:53 Eos % (Auto) 6.9 H (0-4) % H & H 01/10/18 Range/Units 12:53 Hgb 12.6 (12-16) GM/DL Hct 40.0 (36-46) % Orthopedic Assessment and Plan (1) Wound dehiscence Status: Acute Assessment and Plan: Today in clinic I recommended surgical expiration of her left knee surgical site. I reviewed the risks and benefits of surgery and expected postoperative course. She agreed with this plan. We will keep her on IV antibiotics until surgery and continue antibiotics for several days after surgery depending on findings during surgery. - Anticoagulation Therapy Anticoagulation: ASA 81 mg PO BID x6 weeks Hospital Course Summary Disclaimer: The visit summary below is not to be considered part of the above Progress Note.
--- NOTE | 2018-01-10 17:04 | Anesthesia Preoperative Report ---
Anesthesia Preoperative Record - Date and Time Date: 01/10/18 Preoperative Diagnosis: Left total knee dehiscence NPO Since Date: 01/10/18 NPO Since Time: 08:30 (coffee) Allergies/Adverse Reactions: Allergies Allergy/AdvReac Type Severity Reaction Status Date / Time No Known Allergies Allergy Verified 01/10/18 14:35 - Vital Signs Vital Signs: Temperature 97.2 F 01/10/18 16:47 Pulse Rate 90 01/10/18 16:47 Respiratory Rate 16 01/10/18 16:47 Blood Pressure 126/75 01/10/18 16:47 Pulse Oximetry 95 01/10/18 16:47 Height and Weight: Height 5 ft Weight 98.8 kg Body Mass Index 42.5 - Medications Inpatient Medications: Current Medications Lactated Ringer's (Lactated Ringers) 1,000 mls @ 50 mls/hr IV .Q20H BRITTANY Last Admin: 01/10/18 16:30 Dose: 50 mls/hr Sodium Chloride (Iv Flush) 10 ml IV PRN PRN PRN Reason: Flushing Home Medications: Home Medications Medication Instructions Recorded Confirmed Type Levothyroxine Tab [Synthroid] 75 mcg PO ACB 06/17/17 01/10/18 History Torsemide [Demadex] 20 mg PO DAILY 06/17/17 01/10/18 History Aspirin *EC* [Ecotrin] 81 mg PO BID tab 10/29/17 01/10/18 Rx Docusate Sodium [Colace] 100 mg PO BID cap 10/29/17 01/10/18 Rx Naproxen [Aleve (Naproxen) 220 mg] 440 mg PO BID PRN tab 10/29/17 01/10/18 Rx Amitriptyline [Elavil] 1 tab PO HS 12/21/17 01/10/18 History Benazepril [Lotensin] 20 mg PO DAILY 12/21/17 01/10/18 History Citalopram [Celexa] 1 tab PO DAILY 12/21/17 01/10/18 History Acetaminophen [Tylenol] 650 mg PO QID tab 12/31/17 01/10/18 Rx Oxycodone *IR* [Roxicodone *Ir*] 5 - 15 mg PO Q3H PRN #30 tab 12/31/17 01/10/18 Rx PEG 3350 17gm PACKET [Miralax] 17 gm PO DAILY packet 12/31/17 01/10/18 Rx CephALEXin [Keflex 500 mg] 500 mg PO QID 10 Days #40 cap 01/10/18 Rx Is Patient on Beta Charisse?: No - Medical History Respiratory: Reports: Upper Respiratory Infection (recent) DENIES: Asthma, Bronchitis, Chronic Obstructive Pulmonary Disease (COPD), Dyspnea, Orthopnea, Pulmonary Embolism, Pneumonia, Pulmonary Edema, Sleep Apnea , Tuberculosis, Other Cardiovascular: Reports: Hypertension DENIES: Angina, Arrhythmia Gastrointestional: Reports: Gastroesophageal Reflux Disease (well controlled- no meds), Morbid Obesity DENIES: Obstructive Bowel, Hepatitis, Cirrhosis, Nausea or Vomiting Present, Gastrointestinal Bleeding, Hiatal Hernia, Ulcer, Other Neuro/Musculoskeletal: Reports: HX.MS.OSAR (knees, hands), Depression, Other ( LEFT TKA DEHISCENCE 01/10/18) Denies: Back Problems, Cerebrovascular Accident, Headaches, Loss of Consciousness, Muscle Weakness, Neuromuscular Disorder, Paralysis, Paresthesia, Syncope, Seizures Renal/Endocrine: Reports: Thyroid Disease (hypothyroidism), Other ( hyperglycemia per h&p) DENIES: Diabetes Mellitus Type 1, Diabetes Mellitus Type 2, Renal Failure, Dialysis, Weight Loss, Weight Gain Other History: DENIES: Anesthesia Reactions, Now, Blood Transfusions, Chemotherapy , Cancer, Hemophilia, Malignant Hyperthermia, Sickle Cell Disease, Other - Surgical History HEENT Surgeries: Reports: Tonsillectomy (AGE 6) Cardiac Surgeries/Treatments: Reports: Cardiac Catheterization (normal findings age 47) GI Surgery/Treatments: Reports: Cholecystectomy (1995), Colonoscopy (2011), Other (drainage of pilonidal cyst) Surgery/Treatment: DENIES: Dialysis Musculoskeletal Surgery/Tx: Reports: Carpal Tunnel Release (bilateral), Knee Arthroscopy (left), Shoulder Arthroscopy (left total shoulder), Total Knee Replacement (Rt TKA, LT TKR) Reproductive Surgery/Treatment: Reports: Tubal Ligation Hx Family Anesthesia Reaction: No - Social History Smoking Status: Never smoker Hx Chewing Tobacco Use: No Second Hand Exposure: No Substance Use Type: does not use Alcohol Intake: former Alcohol Intake Frequency: does not drink - Pertinent Findings Laboratory: CBC and BMP 01/10/18 12:53 01/10/18 12:53 BMP 01/10/18 12:53 Sodium 144 Potassium 4.1 Chloride 103 Carbon Dioxide 30 BUN 12.0 Creatinine 0.7 Glucose 93 Calcium 9.4 EKG: Sinus Rhythm - Physical Exam Respiratory Exam: Present: lungs clear Cardiovascular Exam: Present: regular rate and rhythm - Airway Assessment Mallampati Score: II TMD: 3 Fingerbreadths Neck Extension: fair Overall Assessment: no airway concerns - ASA ASA Score: 3 - Plan Anesthesia: General TIVA - Discussion Discussion: Discussed risks/options/alternatives of anesthesia and questions answered. Patient consents. Nursing pain assessment noted. Present for Discussion: spouse, family member Attestation Statement: Prior to the delivery of any anesthetic medication, I examined the patient, developed the plan, obtained the patient's consent and discussed the risk and benefits of the procedure with the patient/guardian. - Additional Information Seen by Anesthesia: Yes
--- NOTE | 2018-01-10 17:04 | Anesthesia Postoperative Note ---
- Date and Time Date: 01/10/18 Time: 17:04 - Status Patient Participated in Evaluation: Patient Participated in Person Vital Signs: Temperature 97.2 F 01/10/18 16:47 Pulse Rate 90 01/10/18 16:47 Respiratory Rate 16 01/10/18 16:47 Blood Pressure 126/75 01/10/18 16:47 Pulse Oximetry 95 01/10/18 16:47 Respiratory Function: Airway Patent Cardiovascular Function: Regular Pulse EKG: Sinus Rhythm Mental Status: Alert and Oriented Pain Intensity: 0 Hydration: Taking PO Fluids Complications During Recover: None Apparent - Follow-Up Instructions Instructions: Per Surgeon
[2018-01-10] MEDS ORDERED: MORPHINE SULFATE 10 MG/ML VIAL IVP PRN (17:14)
[2018-01-10] MEDS ORDERED: NAPROXEN 220 MG TABLET PO PRN (17:41)
[2018-01-10] MEDS ORDERED: ONDANSETRON 4 MG/2 ML INJECTION IVP PRN (17:41)
[2018-01-10] MEDS ORDERED: Oxycodone *IR* 5 MG TABLET PO PRN (17:41)
[2018-01-10] MEDS: ACETAMINOPHEN 325 MG TABLET PO SCH ×2 (18:07→21:34)
[2018-01-10] MEDS ORDERED: AMITRIPTYLINE 100 MG TABLET PO SCH (21:00)
[2018-01-10] MEDS: ASPIRIN *EC* 81 MG TABLET PO SCH (21:34)
[2018-01-10] MEDS: DOCUSATE SODIUM 100 MG CAPSULE PO SCH (21:34)
[2018-01-10] MEDS: CEFAZOLIN 2 G in NS 100 ML IV SCH (23:45)
[2018-01-11 04:30] VITALS: RESP 18; O2SAT 91
[2018-01-11] MEDS ORDERED: LEVOTHYROXINE 75 MCG TABLET PO SCH (06:30)
[2018-01-11 07:13] VITALS: BP 110/65; PULSE 76; TEMP 96.8
[2018-01-11] MEDS: CEFAZOLIN 2 G in NS 100 ML IV SCH (08:06)
[2018-01-11] MEDS: ASPIRIN *EC* 81 MG TABLET PO SCH (08:07)
[2018-01-11] MEDS: DOCUSATE SODIUM 100 MG CAPSULE PO SCH (08:08)
[2018-01-11] MEDS: ACETAMINOPHEN 325 MG TABLET PO SCH (08:08)
[2018-01-11] MEDS ORDERED: POLYETHYL GLYCOL 3350 17gm PACKET PO SCH (09:00)
[2018-01-11] MEDS ORDERED: BENAZEPRIL 20 MG TABLET PO SCH (09:00)
[2018-01-11] MEDS ORDERED: CITALOPRAM 20 MG TABLET PO SCH (09:00)
[2018-01-11] MEDS ORDERED: TORSEMIDE 20 MG TABLET PO SCH (09:00)
--- NOTE | 2018-01-11 09:57 | Operative Note ---
DATE OF OPERATION 01/10/2018 PREOPERATIVE DIAGNOSIS Left knee surgical site dehiscence. POSTOPERATIVE DIAGNOSIS Left knee surgical site dehiscence. PROCEDURE Irrigation and debridement of left total knee arthroplasty incision with primary closure. SURGEON Aditya Ordoñez MD BACK PAD INSPECTOR Aliya Cruz APRN COMPLICATIONS None. ANESTHESIA TIVA EBL AND FLUIDS Please see Anesthetic records. BRIEF HISTORY Mrs. Wagner is a 67-year-old female who is 11 days status post left total knee arthroplasty. She was doing well until Wednesday morning when she felt a knot at the superior aspect of her incision. She rubbed this knot and then that night when she was sleeping, had a lot of drainage from the incision which took off her postoperative dressing. She then presented herself to the ER very early this morning where she was evaluated and asked to be seen by me today. I saw her in clinic today and she did have about a 2-3 cm dehiscence of the superior aspect of the wound. I recommended surgical exploration and treatment as needed. She agreed with this plan. At this point, she had no signs of infection, no fever or chills, no erythema, and no foul odor. DESCRIPTION OF PROCEDURE Mrs. Wagner and her left knee were identified and she was brought back to the operating suite. She was placed supine on the operating table. She was placed under general anesthesia. The left lower extremity was prepped and draped in my normal sterile fashion. Time-out was performed. I measured her dehiscence at 3 cm. I then placed my finger within the wound and I was able to palpate down to the capsule and I could feel a rent in the superior medial aspect of the capsule and I could palpate metal. I then opened the surgical incision completely. There were no signs of necrosis, no signs of abscess or other fluid collections, just normal bleeding tissue. There was about a 2 cm opening of the capsule just above the patella. I went ahead and opened this up further, another 2 cm distally so that I could easily get a good exposure to the knee joint. Again, the knee joint didn't show any signs of infection or complication. I then began to irrigate the knee joint. I used a total of six liters of normal saline using cysto tubing. I followed this with my Betadine solution followed by some more water and then I used half a liter of IrriSept solution in the knee joint. The knee was taken through a range of motion. It was nice and stable with no signs of instability and again no signs of necrotic tissue. I then reclosed the capsule with interrupted #1 Vicryl sutures. I followed this with 2-0 interrupted sutures in the subcutaneous tissue followed by interrupted nylon simple sutures in the skin. The knee was taken through a range of motion throughout each layer to ensure a tight closure. I then placed a sterile dressing, then removed the drapes and she was then allowed to awake from general anesthesia and taken to the recovery room under the care of Anesthesia. She tolerated the procedure well. There were no complications. MADAY
== END 2018-01-11 09:45 | disposition home or self-care (01) ==
LOC: SRG
PROVIDERS: ADMIT Orthopaedic Surgery; ATTEND Orthopaedic Surgery